=== PATIENT | female | born 1940 | race Caucasian/White ===

== ENCOUNTER 2024-12-02 18:34 | Emergency (ER) | payer MEDICARE, OTHER, SELFPAY ==
[2024-12-02 18:38] VITALS: BP 153/72
[2024-12-02 18:57] LABS: % Basophils 0.1 % (0-2); % Immature Granulocytes 0.4 % (0-0.5); % Lymphocytes 11.3 % (20.5-51.1); % Monocytes 12.5 % (1.7-9.3); % Neutrophils 73.7 % (42.2-75.2); Absolute Eosinophils 0.2 10^3/uL (0-0.7); Absolute Lymphocytes 0.9 10^3/uL (1.2-3.4); Absolute Neutrophils 5.6 10^3/uL (1.4-6.5); Hematocrit 36.7 % (37.0-47.0); Mean Corp Hgb Conc. 32.7 g/dL (33.0-37.0); Mean Corpuscular Hgb 27.6 pg (27.0-31.0); Mean Corpuscular Volume 84.4 fL (81.0-99.0); Mean Platelet Volume 9.5 fL (7.4-10.4); Nucleated Red Blood Cells % 0 %; Platelet Count 212 10^3/uL (130-400); Red Blood Cell Count 4.35 10^6/uL (4.20-5.40); White Blood Cell Count 7.6 10^3/uL (4.8-10.8)
[2024-12-02 19:08] LABS: INR 1.01; PT 13.6 Sec (11.4-14.6)
[2024-12-02 19:09] LABS: ALT (SGPT) 14 U/L (0-35); AST (SGOT) 27 U/L (14-36); Albumin 3.7 g/dl (3.5-5.0); Alkaline Phosphatase 76 U/L (38-126); Blood Urea Nitrogen 18 mg/dl (7-17); Calcium 9.2 mg/dl (8.4-10.2); Carbon Dioxide 25 mmol/L (22-30); Chloride 104 mmol/L (98-107); Glucose 115 mg/dl (70-99); Potassium 4.2 mmol/L (3.5-5.1); Sodium 135 mmol/L (135-145); Total Bilirubin 0.4 mg/dl (0.2-1.3); Total Protein 6.2 g/dl (6.3-8.2); eGFR > 60.00
[2024-12-02 19:11] LABS: COVID-19 Antigen Negative (Negative)
--- NOTE | 2024-12-02 19:27 | ED.GENMED ---
Addendum entered and electronically signed by Haylee Dsouza NP 12/04/24 08:24:
Staff at [facility] notified of positive blood cultures, she will notify 's doctor.
Original Note:
History of Present Illness
General
Chief Complaint: Change in Mental Status
Time Seen by Provider: 12/02/24 18:43
History of Present Illness
History of Present Illness:
83-year-old female presents to the emergency department from [facility] for evaluation of altered mental status and fever. Patient was recently admitted to [facility] 11/29/2024 after a fall at which time she was identified to have a
subdural hemorrhage and was transported by flight to [place]. No surgical intervention was necessary. She was discharged from [facility] today to [facility], on arrival to [facility] she was noted to be lethargic and confused with a temp.
daughter reports that she seems lethargic for most of today and was noted to have a temperature of 99.9 at time of discharge. Patient at this time denies any complaints. She is mildly confused which the daughter states seems to wax and wane since
her head injury. She specifically denies any coughing, chest pain, shortness of breath, or abdominal pain.
Review of Systems
Review of Systems
Allergies reviewed?: Yes
All Other Systems: ROS reviewed and negative except as documented in HPI and ROS
Phy Exam
Physical Exam
Physical Exam:
GEN: Appears chronically ill and somewhat lethargic but no immediate distress
HEENT: Oral mucosa moist, no scleral icterus, no nasal congestion
Cardiac: Regular rate and rhythm, no murmur
Lung: No respiratory distress, no tachypnea, lungs clear to auscultation bilaterally
Abdomen: Soft, grossly nontender
MSK: No gross deformity or injuries
Skin: Good color, no pallor or jaundice, no rashes
Neuro: Somewhat lethargic but eyes open, oriented x 2; CN II-XII grossly intact. bilateral upper and lower extremity strength is intact and symmetric, does appear globally weak
Psych: Calm, cooperative
Course
Orders/Labs/Results
Orders:
Orders
12/02/24 18:36
EKG [Electrocardiogram (*1)] Urgent
Reason for Study: Fatigue / Weakness
CT Head W/o Iv Contrast Urgent
Comment:
Reason For Exam: known subdural, increased weakness
EKG- Treatment ONCE
12/02/24 18:46
COVID-19 Antigen Urgent
Source: Nasal Swab
Complete Blood Count/With Diff Urgent
Comprehensive Metabolic Panel Urgent
Prothrombin Time Urgent
Influenza A+B Rapid Molecular Urgent
HUGO Source: Nasal Swab
Specimen Description:
12/02/24 18:47
Straight cath- Treatment ONCE
12/02/24 18:48
Blood Culture Q20M
HUGO Source: Blood/Venous
Specimen Description:
Comment: Urgent from separate sites. If patient screens positive for possible sepsis
12/02/24 19:05
Urinalysis Reflex To Culture Urgent
Date Specimen was Collected: 12/02/24
Time Specimen was Collected: 18:47
Urine Microscopic Reflex Cult Urgent
Blood Culture Q20M
HUGO Source: Blood/Venous
Specimen Description:
Comment: Urgent from separate sites. If patient screens positive for possible sepsis
Urine Culture Urgent
HUGO Source: U
Specimen Description:
Date Specimen was Collected: 12/02/24
Time Specimen was Collected: 18:47
12/02/24 19:27
Acetaminophen [Tylenol] 650 mg PO NOW STA
12/02/24 19:35
CR Chest Portable - 1 View Urgent
Comment:
Reason For Exam: fever
Reason Study Needs to be Portable: Other
12/02/24 20:12
Piperacillin/Tazo 3.375 Gram [Zosyn] 3.375 gram in 50 ml IV NOW
Abnormal Lab Results
12/02/24 12/02/24
18:46 19:05
Hct 36.7 L %
(37.0-47.0)
MCHC 32.7 L g/dL
(33.0-37.0)
Absolute Lymphs (auto) 0.9 L 10^3/uL
(1.2-3.4)
Absolute Monos (auto) 1.0 H 10^3/uL
(0.1-0.6)
Lymphocytes % 11.3 L %
(20.5-51.1)
Monocytes % 12.5 H %
(1.7-9.3)
BUN 18 H mg/dl
(7-17)
Glucose 115 H mg/dl
(70-99)
Total Protein 6.2 L g/dl
(6.3-8.2)
Urine Nitrite (Reflex) Positive A
(Negative)
Leukocyte Esterase Rfl 1+ A
(Negative)
Urine Bacteria (Reflex) Many A
(Negative)
Urine Albumin (Reflex) 1+ A
(Neg - Trace)
12/02/24 18:46
12/02/24 18:46
Vital Signs
Initial and Last Documented VS:
Initial Vital Signs
Temp Pulse Resp BP Pulse Ox
100.7 F H 82 17 153/72 96
12/02/24 18:38 12/02/24 18:38 12/02/24 18:38 12/02/24 18:38 12/02/24 18:38
Last Documented Vital Signs
Temp Pulse Resp BP Pulse Ox
100.7 F H 80 25 153/72 95
12/02/24 18:38 12/02/24 18:39 12/02/24 18:39 12/02/24 18:38 12/02/24 18:39
MDM/Problems Addressed
MDM/Problems Addressed:
Patient's workup is suspicious for an acute UTI with nitrite positive urine despite lack of large leukocytes. No alternative source of fever is identified. Chest x-ray does reveal an elevated left hemidiaphragm with a dense lower lobe
consolidation, [facility] on November 29 at [facility] showed similar findings. She has no respiratory symptoms or coughing to suggest acute pneumonia, nevertheless Augmentin should be appropriate respiratory
and urinary coverage. IV Zosyn given in the ED and will discharge back to [facility]
*Critical Care Note
Total Time (30-74mins, 75-104mins- exclusive of procedures): Not Applicable
Update Note
Update Note:
CT reports from [facility] show initial subdural was measured at 9mm, f/u CT showed improvement to 8mm. Current CT finding of 5mm showing improvement
ED Attending Note
-
Portions of this chart may have been created with voice recognition software.� Occasional wrong word or��sound alike� substitutions may have occurred due to the inherent limitations of voice recognition software.
Discharge Plan
Departure
Patient Disposition: Home (Routine Discharge)
Date of Disposition: 12/02/24
Time of Disposition: 20:35
Patient with high blood pressure during this ER visit?: Yes
Discharge Problem:
Urinary tract infection
Instructions: Urinary tract infections in adults
Prescriptions:
New
amoxicillin-pot clavulanate 875-125 mg tablet
1 tab PO BID 7 Days Qty: 13 0RF
No Action
primidone 50 mg Tablet
50 mg PO BID
sennosides [senna] 8.6 mg Tablet
1 mg PO BID
lidocaine 4 % Adhesive Patch,Medicated
2 patch TOPICAL BID
Rx Instructions:
Lower back
atorvastatin 10 mg Tablet
10 mg PO DAILY
levetiracetam [Keppra] 500 mg Tablet
500 mg PO Q12H
Rx Instructions:
For 5 days
amlodipine 5 mg Tablet
5 mg PO DAILY
levothyroxine 25 mcg Tablet
25 mcg PO DAILY
Rx Instructions:
Take 1 tablet by mouth every day in the morning on an empty stomach for 30 days
docusate sodium [Colace] 100 mg Capsule
100 mg PO BID
gabapentin 100 mg Capsule
100 mg PO HS
multivitamin with minerals Tablet
1 tab PO DAILY
propranolol 20 mg Tablet
20 mg PO BID
olmesartan 40 mg Tablet
40 mg PO DAILY
loratadine 10 mg Capsule
10 mg PO DAILY
Referrals:
Polo Dillard MD [Family Provider] -
Interventions
Interventions:
*Risk Screen - Suicide Last Done: 12/02/24 19:00
*General Assessment Last Done: 12/02/24 19:00
*Neglect/Abuse Screening Last Done: 12/02/24 19:00
*ED COVID-19 Vaccine History Last Done: 12/02/24 18:45
ED- Neurological Assessment Last Done: 12/02/24 19:00
ED- Cardiac Assessment Last Done: 12/02/24 19:00
ED Swallowing Screen Last Done: 12/02/24 19:30
Discharge Date and Time
Print Language: JAPANESE
[2024-12-02 19:28] LABS: Urine Albumin 1+ (Neg - Trace); Urine Bilirubin Negative (Negative); Urine Character Clear (Clear); Urine Color Yellow; Urine Glucose Negative (Negative); Urine Ketone Negative (Negative); Urine Leukocyte 1+ (Negative); Urine Nitrite Positive (Negative); Urine Occult Blood Negative (Negative); Urine Specific Gravity 1.015 (<1.030); Urine Urobilinogen Negative (Neg - 1+); Urine pH 6.5 (5.0-9.0)
[2024-12-02 19:34] LABS: Urine Squamous Cell 0-2 /LPF (Few)
[2024-12-02 19:35] LABS: Urine Bacteria Many (Negative); Urine Red Blood Cell 0-2 /HPF (0-2)
[2024-12-02] MEDS: TYLENOL 650 MG PO (19:36)
[2024-12-02] MEDS: ZOSYN 50 IV (20:35)
== END 2024-12-02 22:17 | disposition home or self-care (01) ==
LOC: EMR 18:34
PROVIDERS: Physician Assistant; EMERGENCY PHYSICIAN Emergency Medicine; FAMILY PHYSICIAN Internal Medicine
DX: N39.0 Urinary tract infection, site not specified (principal); Z11.52 Encounter for screening for COVID-19
CPT/HCPCS: 99285; 96365; 51701; 70450; 71045; 80053; 81003; 81015; 85025; 85610; 87040; 87086; 87205; 87502; 87811; 93005

== ENCOUNTER 2024-12-04 09:22 | Emergency (ER) | payer MEDICARE, OTHER, SELFPAY ==
[2024-12-04] VITALS (7 sets, daily range): BP systolic 113–127; BP diastolic 61–80; BMI 18.9
--- NOTE | 2024-12-04 09:48 | ED.GENMED ---
History of Present Illness
General
Chief Complaint: Abnormal Lab Value
Source: patient
Exam Limitations: none
Time Seen by Provider: 12/04/24 09:28
History of Present Illness
History of Present Illness:
83-year-old female presents from [facility] after [facility] was notified that one of the 2 blood cultures is positive for gram-positive cocci. Patient was here 2 days ago from [facility] and found to have a urinary tract infection. She was
started on Augmentin. There is were done at that time. Prior to [facility] she fell and had a subdural hemorrhage and was treated at [facility] for this. No surgical intervention was necessary. Patient is just upset that she is back in the
emergency room. She has no complaints of pain fever chills sweats.
Phy Exam
Physical Exam
Physical Exam:
General: Well-appearing female no acute respiratory distress
HEENT: Normocephalic resolving ecchymosis left side of forehead
Heart: Regular rate and rhythm
Lungs: Clear no wheeze
Extremities: No cyanosis or edema
Skin: Warm no rash
Course
Orders/Labs/Results
Orders:
Orders
12/04/24 10:19
Complete Blood Count/With Diff Urgent
Comprehensive Metabolic Panel Urgent
Blood Culture Q30M
HUGO Source: Blood/Venous
Specimen Description:
Blood Culture Q30M
HUGO Source: Blood/Venous
Specimen Description:
Abnormal Lab Results
12/04/24
10:19
MCHC 31.8 L g/dL
(33.0-37.0)
Absolute Lymphs (auto) 0.6 L 10^3/uL
(1.2-3.4)
Absolute Monos (auto) 0.8 H 10^3/uL
(0.1-0.6)
Lymphocytes % 9.9 L %
(20.5-51.1)
Monocytes % 14.1 H %
(1.7-9.3)
12/04/24 10:19
12/04/24 10:19
Vital Signs
Initial and Last Documented VS:
Initial Vital Signs
Temp Pulse Resp BP Pulse Ox
98.7 F 66 18 113/61 98
12/04/24 09:27 12/04/24 09:27 12/04/24 09:27 12/04/24 09:27 12/04/24 09:27
Last Documented Vital Signs
Temp Pulse Resp BP Pulse Ox
98.1 F 63 18 114/77 96
12/04/24 09:36 12/04/24 09:36 12/04/24 09:36 12/04/24 10:00 12/04/24 10:45
MDM/Problems Addressed
Differential Diagnosis Includes:
Patient called back for positive blood cultures. 1 tube of the 2 showed gram-positive cocci. This was the anaerobic culture. The other tube showed no growth over 24 hours. Patient has no complaints. She is afebrile here. Question possible
contaminated specimen
*Critical Care Note
Total Time (30-74mins, 75-104mins- exclusive of procedures): Not Applicable
ED Attending Note
-
Portions of this chart may have been created with voice recognition software.� Occasional wrong word or��sound alike� substitutions may have occurred due to the inherent limitations of voice recognition software.
Discharge Plan
Departure
Patient Disposition: Other
Date of Disposition: 12/04/24
Time of Disposition: 11:21
Discharge Problem:
Concern for positive blood culture
Prescriptions:
No Action
amoxicillin-pot clavulanate 875-125 mg tablet
1 tab PO BID 7 Days Qty: 13 0RF
Rx Instructions:
last dose 12/09/24
acetaminophen [Tylenol] 325 mg Tablet
650 mg PO Q6HPRN PRN (Reason: mild pain)
sennosides-docusate sodium [Senokot-S] 8.6-50 mg Tablet
1 tab-cap PO BID
bisacodyl [Dulcolax (bisacodyl)] 10 mg Suppository
10 mg ND DAILYPRN PRN (Reason: if no bm aftr suppository)
pantoprazole [Protonix] 40 mg Tablet,Delayed Release (Dr/Ec)
40 mg PO DAILY
bisacodyl [Dulcolax (bisacodyl)] 5 mg Tablet,Delayed Release (Dr/Ec)
10 mg PO DAILYPRN PRN (Reason: constipation)
loratadine [Claritin] 10 mg Tablet
10 mg PO DAILY
enoxaparin [Lovenox] 30 mg/0.3 mL Syringe
30 mg SC DAILY
cholecalciferol (vitamin D3) [Vitamin D3] 50 mcg (2,000 unit) Capsule
50 mcg PO DAILY
primidone 50 mg Tablet
50 mg PO BID
lidocaine 4 % Adhesive Patch,Medicated
1 patch TOPICAL DAILY
Rx Instructions:
Lower back and left knee
atorvastatin 10 mg Tablet
10 mg PO QPM
levetiracetam [Keppra] 500 mg Tablet
500 mg PO Q12H
amlodipine 5 mg Tablet
5 mg PO DAILY
levothyroxine 25 mcg Tablet
25 mcg PO DAILY
multivitamin with minerals Tablet
1 tab PO DAILY
propranolol 20 mg Tablet
20 mg PO BID
olmesartan 40 mg Tablet
40 mg PO DAILY
Referrals:
Polo Dillard MD [Family Provider] -
Activity Restrictions/Additional Instructions:
As discussed, the positive blood culture he received a call about today is most likely contaminant. Your vital signs are stable basic blood work looks normal. There is no fever here. Repeat blood cultures were drawn and are pending. You should
receive a call if they are positive.
Hospital Transfer
Other hospital: [facility]
Interventions
Interventions:
*Risk Screen - Suicide Last Done: 12/04/24 09:40
*General Assessment Last Done: 12/04/24 09:40
*Neglect/Abuse Screening Last Done: 12/04/24 09:40
*ED- Fall Risk Assessment Last Done: 12/04/24 09:40
*ED COVID-19 Vaccine History Last Done: 12/04/24 09:40
Discharge Date and Time
Print Language: UZBEK
[2024-12-04 10:31] LABS: % Basophils 0.2 % (0-2); % Eosinophils 2.5 % (0-6); % Immature Granulocytes 0.3 % (0-0.5); % Lymphocytes 9.9 % (20.5-51.1); % Monocytes 14.1 % (1.7-9.3); Absolute Eosinophils 0.2 10^3/uL (0-0.7); Absolute Lymphocytes 0.6 10^3/uL (1.2-3.4); Absolute Monocytes 0.8 10^3/uL (0.1-0.6); Absolute Neutrophils 4.3 10^3/uL (1.4-6.5); Hemoglobin 12.1 g/dL (12.0-16.0); Mean Corp Hgb Conc. 31.8 g/dL (33.0-37.0); Mean Corpuscular Hgb 27.8 pg (27.0-31.0); Mean Corpuscular Volume 87.4 fL (81.0-99.0); Mean Platelet Volume 10.1 fL (7.4-10.4); Nucleated Red Blood Cells % 0 %; Platelet Count 223 10^3/uL (130-400); Red Blood Cell Count 4.35 10^6/uL (4.20-5.40); Red Cell Dist. Width 13.9 % (11.5-14.5)
[2024-12-04 10:51] LABS: ALT (SGPT) 17 U/L (0-35); AST (SGOT) 33 U/L (14-36); Alkaline Phosphatase 58 U/L (38-126); Blood Urea Nitrogen 16 mg/dl (7-17); Calcium 9.4 mg/dl (8.4-10.2); Carbon Dioxide 25 mmol/L (22-30); Chloride 104 mmol/L (98-107); Estimated Creatinine Clearance 46 ml/min; Glucose 98 mg/dl (70-99); Potassium 4.7 mmol/L (3.5-5.1); Sodium 136 mmol/L (135-145); Total Bilirubin 0.6 mg/dl (0.2-1.3); Total Protein 6.3 g/dl (6.3-8.2); eGFR > 60.00
[2024-12-04 11:02] LABS: Albumin 3.6 g/dl (3.5-5.0)
== END 2024-12-04 11:51 ==
LOC: EMR 09:22
PROVIDERS: Physician Assistant; EMERGENCY PHYSICIAN Emergency Medicine; FAMILY PHYSICIAN Internal Medicine
DX: Z01.89 Encounter for other specified special examinations (principal)
CPT/HCPCS: 99283; 80053; 85025; 87040

== ENCOUNTER 2024-12-10 07:07 | Emergency (ER) | payer MEDICARE, OTHER, SELFPAY ==
[2024-12-10] VITALS (10 sets, daily range): BP systolic 98–149; BP diastolic 46–85; BMI 22.8
--- NOTE | 2024-12-10 08:02 | ED.MUSCINJ ---
HPI-Injury
<Lenny Torres PA-C - Last Filed: 12/10/24 15:19>
General
Chief Complaint: Fall
Source: patient
Exam Limitations: none
Time Seen by Provider: 12/10/24 07:52
History of Present Illness-Injury
Initial Injury comments:
83-year-old female presents from [facility]. She is currently at [facility] due to a recent subdural hemorrhage. She was initially seen at [facility] and was transferred to [facility]. She has been ambulating with a walker. Today she
was in the bathroom putting on make-up when she fell. She did maybe hit her head and she also complains of left hip pain. No chest pain or shortness of breath. No preceding dizziness or lightheadedness. There is no nausea or vomiting. She was
treated conservatively for her subdural hemorrhage at [facility].
Phy Exam
<Lenny Torres PA-C - Last Filed: 12/10/24 15:19>
Physical Exam
Physical Exam:
General: Well-appearing female no acute respiratory distress
HEENT: Normocephalic resolving ecchymosis noted to the left side of the scalp and forehead. Pupils equal round reactive to light
Heart: Regular rate and rhythm
Lungs: Clear no wheeze
Abdomen is soft nontender
Musculoskeletal exam: Cervical spine is nontender. She has slight pain to the left hip with internal and external rotation however there is no deformity.
Injury Course
<Lenny Torres PA-C - Last Filed: 12/10/24 15:19>
Orders/Labs/Results
Orders:
Orders
12/10/24 08:02
CT Head W/o Iv Contrast Urgent
Comment:
Reason For Exam: fall, recent subdural bleed
CR Hip - LT w/wo Pel 2-3 Vw* Urgent
Comment:
Reason For Exam: fall, pain
Include a pelvis x-ray?: Yes
12/10/24 08:17
Ipratropium/Albuterol Sulfate [Duoneb] 3 ml .ROUTE .STK-MED ONE
12/10/24 11:09
Acetaminophen [Tylenol] 650 mg .ROUTE .STK-MED ONE
12/10/24 11:12
Acetaminophen [Tylenol] 650 mg PO NOW STA
12/10/24 11:30
CT Head W/o Iv Contrast Urgent
Comment:
Reason For Exam: fall, possible new subdural
12/10/24 14:54
Urinalysis Reflex To Culture Urgent
Date Specimen was Collected: 12/10/24
Time Specimen was Collected: 14:53
<Magdy Corona Jr., CHRIS-Shira - Last Filed: 12/11/24 11:08>
Orders/Labs/Results
Orders:
Orders
12/10/24 08:02
CT Head W/o Iv Contrast Urgent
Comment:
Reason For Exam: fall, recent subdural bleed
CR Hip - LT w/wo Pel 2-3 Vw* Urgent
Comment:
Reason For Exam: fall, pain
Include a pelvis x-ray?: Yes
12/10/24 08:17
Ipratropium/Albuterol Sulfate [Duoneb] 3 ml .ROUTE .STK-MED ONE
12/10/24 11:09
Acetaminophen [Tylenol] 650 mg .ROUTE .STK-MED ONE
12/10/24 11:12
Acetaminophen [Tylenol] 650 mg PO NOW STA
12/10/24 11:30
CT Head W/o Iv Contrast Urgent
Comment:
Reason For Exam: fall, possible new subdural
12/10/24 14:54
Urinalysis Reflex To Culture Urgent
Date Specimen was Collected: 12/10/24
Time Specimen was Collected: 14:53
<Lenny Torres PA-C - Last Filed: 12/10/24 15:19>
MDM/Problems Addressed
Differential Diagnosis Includes:
Fall. Potential head strike with recent subdural hemorrhage. Repeat CT ordered. X-ray left hip pending as well to evaluate for fracture.
Patient feels well otherwise has no other complaints. She is [facility] plan would be to discharge back to [facility] pending negative results on imaging
<Lenny Torres PA-C - Last Filed: 12/10/24 15:19>
*Critical Care Note
Total Time (30-74mins, 75-104mins- exclusive of procedures): Not Applicable
<Lenny Torres PA-C - Last Filed: 12/10/24 15:19>
Update Note
Update Note:
Initial and repeat CT scan shows subacute subdural hemorrhage unchanged from prior. Discussed with neurosurgery and emergency room attending. No indication for admission. Stable for discharge back to facility. Repeat urine pending as patient was
recently here for urinary tract infection and antibiotics were changed.
<Magdy Corona Jr., PA-C - Last Filed: 12/11/24 11:08>
Update Note
Update Note:
Initial and repeat CT scan shows subacute subdural hemorrhage unchanged from prior. Discussed with neurosurgery and emergency room attending. No indication for admission. Stable for discharge back to facility. Repeat urine pending as patient was
recently here for urinary tract infection and antibiotics were changed.
Urine culture from 311 showed negative Staphylococcus. 2 negative culture since.
ED Attending Note
<Lenny Torres PA-C - Last Filed: 12/10/24 15:19>
-
Portions of this chart may have been created with voice recognition software.� Occasional wrong word or��sound alike� substitutions may have occurred due to the inherent limitations of voice recognition software.
Discharge Plan
Departure
Patient Disposition: Acute Rehab Facility
Date of Disposition: 12/10/24
Time of Disposition: 15:18
Patient with high blood pressure during this ER visit?: No
Discharge Problem:
Fall
Prescriptions:
No Action
acetaminophen [Tylenol] 325 mg Tablet
650 mg PO Q6HPRN PRN (Reason: mild pain)
sennosides-docusate sodium [Senokot-S] 8.6-50 mg Tablet
1 tab-cap PO BID
bisacodyl [Dulcolax (bisacodyl)] 10 mg Suppository
10 mg [place] DAILYPRN PRN (Reason: if no bm aftr suppository)
pantoprazole [Protonix] 40 mg Tablet,Delayed Release (Dr/Ec)
40 mg PO DAILY
bisacodyl [Dulcolax (bisacodyl)] 5 mg Tablet,Delayed Release (Dr/Ec)
10 mg PO DAILYPRN PRN (Reason: constipation)
loratadine [Claritin] 10 mg Tablet
10 mg PO DAILY
enoxaparin [Lovenox] 30 mg/0.3 mL Syringe
30 mg SC DAILY
cholecalciferol (vitamin D3) [Vitamin D3] 50 mcg (2,000 unit) Capsule
50 mcg PO QPM
ciprofloxacin HCl 500 mg Tablet
500 mg PO BID
olmesartan [Benicar] 40 mg Tablet
40 mg PO QPM
Visbiome 112.5 billion cell Capsule
1 cap PO DAILY
melatonin 10 mg Tablet
10 mg PO HS
primidone 50 mg Tablet
50 mg PO BID
lidocaine 4 % Adhesive Patch,Medicated
1 patch TOPICAL DAILY
Rx Instructions:
Lower back and left knee
atorvastatin 10 mg Tablet
10 mg PO QPM
amlodipine 5 mg Tablet
5 mg PO DAILY
levothyroxine 25 mcg Tablet
25 mcg PO DAILY
multivitamin with minerals Tablet
1 tab PO DAILY
propranolol 20 mg Tablet
20 mg PO BID
Referrals:
Polo Dillard MD [Family Provider] -
Interventions
Interventions:
*Risk Screen - Suicide Last Done: 12/10/24 07:13
*General Assessment Last Done: 12/10/24 07:13
*Neglect/Abuse Screening Last Done: 12/10/24 07:15
*ED- Fall Risk Assessment Last Done: 12/10/24 14:00
*ED COVID-19 Vaccine History Last Done: 12/10/24 07:17
*Nursing Disposition Last Done: 12/10/24 16:00
ED-Musculoskeletal Assessment Last Done: 12/10/24 07:16
ED- Neurological Assessment Last Done: 12/10/24 07:16
ED-Skin Assessment Last Done: 12/10/24 07:16
Discharge Date and Time
Discharge Date/Time: 12/10/24 16:06
Print Language: [email or web address]
--- NOTE | 2024-12-10 09:04 | CM ---
Patient from [place], [facility] received call from [employer] work cell [phone]. Patient lives with son, prior to admission to [facility]. CM spoke with Zuleima at [facility], await clarification of the medical assessment. CM will continue to
follow for discharge planning needs.
Plan; transfer to [facility] pending assessment
[2024-12-10] MEDS: TYLENOL 650 MG PO (11:12)
[2024-12-10 15:15] LABS: Urine Albumin Negative (Neg - Trace); Urine Bilirubin Negative (Negative); Urine Character Clear (Clear); Urine Color Yellow; Urine Glucose Negative (Negative); Urine Ketone Negative (Negative); Urine Leukocyte Negative (Negative); Urine Nitrite Negative (Negative); Urine Occult Blood Negative (Negative); Urine Specific Gravity 1.015 (<1.030); Urine Urobilinogen Negative (Neg - 1+)
== END 2024-12-10 16:06 ==
LOC: EMR 07:07
PROVIDERS: Physician Assistant; EMERGENCY PHYSICIAN Emergency Medicine; FAMILY PHYSICIAN Internal Medicine
DX: S09.90XA Unspecified injury of head, initial encounter (principal); M25.552 Pain in left hip; W19.XXXA Unspecified fall, initial encounter; Z86.73 Personal history of transient ischemic attack (TIA), and cerebral infarction without residual deficits
CPT/HCPCS: 99284; 70450; 73502; 81003